=== PATIENT | female | born 1985 | race Caucasian/White ===

== ENCOUNTER 2016-10-25 17:31 | Emergency (ER) | payer MEDICAID ==
[~2016-10-25] VITALS: Ht 160 cm; Wt 90.0 kg
[~2016-10-25 17:31] MED LIST: PRENAT PO
[2016-10-25 17:38] VITALS: Ht 160 cm; Wt 90.0 kg
--- NOTE | 2016-10-25 19:18 | ERD ---
ER Documentation Chief Complaint Date/Time DATE: 10/25/16 TIME: 19:13 Chief Complaint LEFT BELOW KNEE PAIN X 3 DAYS HPI This patient is a 31-year-old female who is currently reportedly 2 months presenting to the emergency department with complaints of left lower extremity pain just inferior to the medial cruciate ligament. Symptoms began 3 days ago. Symptoms are worsening. Aggravating factors include walking. Alleviating factors include ibuprofen and rest. The patient's last menstrual cycle was 08-25-2016. She is Ab0 LC 3. She has never had these symptoms in the past. She denies recent travel, fevers, chills, nausea, vomiting, diarrhea, vaginal bleeding, vaginal discharge, pelvic pain, and other symptoms. ROS All systems reviewed and are negative except as per history of present illness. Medications Home Meds Active Scripts Acetaminophen* (Tylenol*) 325 Mg Tablet, 2 TAB PO Q6 Y for PAIN AND OR ELEVATED TEMP, #20 TAB Prov:NADJA DUMONT PA-C 10/25/16 Reported Medications Multivit/Min/Fol Ac/Iron/Pren* ( S*) 1 Tab Tab, 1 TAB PO AC MEALS, TAB 07/14/14 Allergies Allergies: Coded Allergies: No Known Allergy (Unverified , 01/03/14) PMhx/Soc Hx Alcohol Use: No Hx Substance Use: No Hx Tobacco Use: No Physical Exam Vitals Vital Signs Date Time Temp Pulse Resp B/P Pulse Ox O2 Delivery O2 Flow Rate FiO2 10/25/16 20:35 16 Room Air 10/25/16 17:38 98.1 93 18 132/77 99 Physical Exam Const: Nontoxic, well-appearing female in no acute distress. Head: Atraumatic Eyes: Normal Conjunctiva ENT: Normal External Ears, Nose and Mouth. Neck: Full range of motion..~ No meningismus. Resp: Clear to auscultation bilaterally Cardio: Regular rate and rhythm, no murmurs Abd: Gravid abdomen, soft, non tender, non distended. Normal bowel sounds. There is no suprapubic tenderness to palpation. Skin: No petechiae or rashes Back: No midline or flank tenderness. No CVA tenderness. Ext: No cyanosis, or edema. There is tenderness to the MCL on the left lower extremity. No significant redness, swelling, warmth, or ecchymosis noted. Limited range of motion of the knee joint secondary to pain. No calf pain to the left lower extremity. The right lower extremity is normal in appearance. Neur: Awake and alert Psych: Normal Mood and Affect Results 24 hrs Current Medications Medications (Trade) Dose Ordered Sig/Shanon Route PRN Reason Start Time Stop Time Status Last Admin Dose Admin Acetaminophen (Tylenol Tab) 650 mg ONCE ONCE PO 10/25/16 19:30 10/25/16 19:31 DC 10/25/16 19:17 [place] [id number] Radiology Main Line: [phone] DIAGNOSTIC IMAGING REPORT Patient: MARIBEL MONTERROSO : 1985 Age: 31 Sex: F MR #: [id number] DOS: 10/25/16 191 Ordering MD: NADJA DUMONT PA-C Location: [facility] Room/Bed: PROCEDURE: US DVT. CLINICAL INDICATION: Left lower extremity pain and swelling. TECHNIQUE: Multiple longitudinal and transverse images of the left lower extremity veins were obtained with chin scale and color Doppler imaging. 2D grayscale measurements with compression, color Doppler flow, and augmentation was performed. The calf veins were interrogated as well. COMPARISON: No prior studies are available for comparison. FINDINGS: The left common femoral, superficial femoral and popliteal veins are normally compressible throughout. Color flow demonstrates normal filling of the vessel. Normal waveforms are visualized and there is normal response to augmentation. The calf veins are visualized and are equally unremarkable. IMPRESSION: 1. No evidence of a deep vein thrombosis involving the left lower extremity. RPTAT: HH .Gricel De Leon MD, MD Date Time Electronically viewed and signed by .Gricel De Leon MD, MD on 10/25/2016 20: 18 .N/ CC: NADJA DUMONT PA-C PROCEDURE: XR Knee. CLINICAL INDICATION: Left knee pain. TECHNIQUE: Three views of the left knee are available for review. COMPARISON: None available FINDINGS: No acute fracture or dislocation is seen. No radiopaque foreign body is identified. Alignment is anatomic. No significant soft tissue swelling is noted. IMPRESSION: 1. No acute fracture or dislocation. RPTAT: HH .Gricel De Leon MD, MD Date Time Electronically viewed and signed by .Gricel De Leon MD, MD on 10/25/2016 20:19 Procedures/MDM 31-year-old female presenting to the emergency department with left lower extremity pain for the past 3 days. On physical examination the patient's vitals are within normal limits. Exam of the left knee showed slightly decreased range of motion secondary to pain. There was tenderness palpation of the medial portion of the knee just inferior to the MCL. There is no significant warmth, tenderness, or swelling noted to the left lower extremity. The patient is reportedly 2 months but denies any vaginal or obstetrical complaints. Venous Doppler of the left lower extremity showed no evidence of deep vein thrombosis and was interpreted by the radiologist. X-ray of the left knee showed no acute fracture dislocation and was interpreted by the radiologist. The patient was medicated in the department of Tylenol she was feeling improved on reevaluation. The patient's diagnosis is pain of the left leg with unclear etiology. It may be secondary to muscle strain. Since she is she will be prescribed Tylenol and she was advised to follow-up with her primary care physician. She was also given an Ken wrap in the department and she was neurovascularly intact post application. Rice therapy counseling was given to the patient. She agreed with the discharge plan and diagnosis. All questions and concerns were addressed. Strict ER return precautions were discussed. Departure Diagnosis: Primary Impression: Pain of left leg Condition: NADJA Lamb PA-C Oct 25, 2016 19:18
[2016-10-25] MEDS ORDERED: ACETAMINOPHEN 325 MG TAB PO ONE (19:30)
--- NOTE | 2016-10-25 20:19 | RADRPT ---
PROCEDURE: XR Knee. CLINICAL INDICATION: Left knee pain. TECHNIQUE: Three views of the left knee are available for review. COMPARISON: None available FINDINGS: No acute fracture or dislocation is seen. No radiopaque foreign body is identified. Alignment is a natomic. No significant soft tissue swelling is noted. IMPRESSION: 1. No acute fracture or dislocation. RPTAT: HH .Gricel De Leon MD, MD Date Time Electronically viewed and signed by .Gricel De Leon MD, on 10/25/2016 20:19 .N/
--- NOTE | 2016-10-25 20:19 | RADRPT ---
PROCEDURE: US DVT. CLINICAL INDICATION: Left lower extremity pain and swelling. TECHNIQUE: Multiple longitudinal and transverse images of the left lower extremity veins were obta ined with chin scale and color Doppler imaging. 2D grayscale measurements with compression, color D oppler flow, and augmentation was performed. The calf veins were interrogated as well. COMPARISON: No prior studies are available for comparison. FINDINGS: The left common femoral, superficial femoral and popliteal veins are normally compressible throughou t. Color flow demonstrates normal filling of the vessel. Normal waveforms are visualized and there is normal response to augmentation. The calf veins are visualized and are equally unremarkable. IMPRESSION: 1. No evidence of a deep vein thrombosis involving the left lower extremity. RPTAT: HH .Gricel De Leon MD, MD Date Time Electronically viewed and signed by .Gricel De Leon MD, MD on 10/25/2016 20:18 .N/
[2016-10-25] MEDS ORDERED: ACET325T33 PO (20:23)
[2016-10-25 20:35] VITALS: RESP 16
== END 2016-10-25 20:36 | disposition home or self-care (01) ==
LOC: FTE 17:31
DX: O99.89 Other specified diseases and conditions complicating pregnancy, childbirth and the puerperium (principal); M79.605 Pain in left leg; Z3A.00 Weeks of gestation of pregnancy not specified
CPT/HCPCS: 73562; 93971; Z7610

== ENCOUNTER 2017-05-15 10:08 | Inpatient (IN) | END 2017-05-18 15:40 | disposition home or self-care (01) | DRG 766 ==